=== PATIENT | male | born 2000 | race Caucasian/White ===

== ENCOUNTER 2021-09-13 13:35 | Emergency (ER) | payer BC, SELFPAY ==
[2021-09-13 13:35] VITALS: BP 121/67; PULSE 89; RESP 18; TEMP 36.7; O2SAT 99; BMI 26.5
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
--- NOTE | 2021-09-13 14:10 | RAD_ITS ---
EXAM: XR RIGHT ANKLE, 2 VIEWS CLINICAL INDICATION: pain TECHNIQUE: Frontal and lateral views of the right ankle. This report was created using [employer] report generation technology. COMPARISON: None. FINDINGS: BONES/JOINTS: Partially visualized distal tibial fracture. Preservation of the joint space. No sclerotic or destructive changes observed. SOFT TISSUES: Unremarkable. No soft tissue swelling or gas. No radiopaque foreign body. RAD/Ankle 2 Views IMPRESSION: Partially visualized distal tibial fracture. Electronically Signed: Ralph Mccloud MD at 15:13 EDT ,
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
--- NOTE | 2021-09-13 14:10 | RAD_ITS ---
EXAM: XR RIGHT TIBIA AND FIBULA, 2 VIEWS CLINICAL INDICATION: pain TECHNIQUE: Frontal and lateral views of the right tibia and fibula. This report was created using [employer] report generation technology. COMPARISON: None. FINDINGS: BONES/JOINTS: Mid to distal third of the fracture of the tibia. There is displacement. Preservation of the joint space. No sclerotic or destructive changes observed. SOFT TISSUES: Unremarkable. No soft tissue swelling or gas. No radiopaque foreign body. RAD/Tibia & Fibula 2 Views IMPRESSION: Mid to distal third of the fracture of the tibia. There is displacement. Electronically Signed: Ralph Mccloud MD at 15:13 EDT ,
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
[2021-09-13 14:41] LABS: Absolute Lymphocyte Count 1.28 X10^3/uL (0.83-4.51); Basophil# 0.11 X10^3/uL; Eosinophils% 3.5 % (0-5); Hematocrit 42.7 % (40-54); Hemoglobin 15.4 g/dL (13.0-16.5); Lymphocyte # 1.28 X10^3/ul (0.83-4.51); Lymphocyte % 11.3 % (19-41); Mean Corp Hgb Conc 36.1 g/dL (32-36); Mean Corpuscular Hgb 31.5 pg (27.0-32.0); Mean Corpuscular Volume 87.3 fL (80-94); Mean Platelet Vol. 9.8 fl (6.2-12.0); Monocyte# 0.59 X10^3/uL; Monocyte% 5.2 % (0-10); NRBC Flagged by Analyzer 0 % (0-5); Neutrophil # 8.95 X10^3/uL (2.7-7.7); Neutrophil % 78.6 % (47-70); Platelet Count 276 K/mm3 (150-450); RBC Distribution Width CV 11.9 % (11.6-14.6); RBC Distribution Width SD 38.1 fl (35.1-43.9); Red Blood Count 4.89 M/mm3 (4.6-6.2); White Blood Count 11.4 K/mm3 (4.4-11.0)
[2021-09-13 14:50] LABS: Anion Gap 9 (5-15); BUN 18 mg/dL (7-18); BUN/Creat Ratio 15.4 RATIO (10-20); Calcium,Total 9.6 mg/dL (8.5-10.1); Chloride 107 mmol/L (98-107); Creatinine, Serum 1.17 mg/dL (0.70-1.30); EST Glomerular Filtration Rate 83 mL/min (>60); Est Glom Filt Rate - Afr Amer 100 mL/min (>60); Estimated Creatinine Clearance 121.59 ml/min; Glucose 100 mg/dL (74-106); International Normalized Ratio 1.1; Potassium 3.2 mmol/L (3.5-5.1); Prothrombin Time (Protime)PT. 13.4 SECONDS (11.7-14.9); Sodium Level 141 mmol/L (136-145)
[2021-09-13 15:06] LABS: Alcohol, Blood (Medical)-Serum < 3.0 mg/dL
[2021-09-13] MEDS: Morphine 4 MG/ML Syringe IV (15:08)
[2021-09-13] MEDS: Ondansetron 4 MG/2 ML Vial IV (15:08)
[2021-09-13 15:12] VITALS: BP 127/64; PULSE 89; RESP 18; O2SAT 96
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
[2021-09-13] MEDS: HYDROmorphone 1 MG/ML Syringe IV (17:00)
[2021-09-13 17:10] VITALS: BP 119/72; PULSE 86; RESP 16; O2SAT 98
--- NOTE | 2021-09-13 17:10 | RAD_ITS ---
EXAM: XR RIGHT TIBIA AND FIBULA, 2 VIEWS CLINICAL INDICATION: tib fracture TECHNIQUE: Frontal and lateral views of the right tibia and fibula. This report was created using [employer] report generation technology. COMPARISON: Study done earlier FINDINGS: BONES/JOINTS: Fiberglas cast in place. Alignment is unchanged since the prior study. Mid tibial fracture is again identified. Preservation of the joint space. No sclerotic or destructive changes observed. SOFT TISSUES: Unremarkable. No soft tissue swelling or gas. No radiopaque foreign body. RAD/Tibia & Fibula 2 Views IMPRESSION: 1. Fiberglas cast in place. Alignment is unchanged since the prior study. 2. Mid tibial fracture is again identified. Electronically Signed: Ralph Mccloud MD at 18:01 EDT ,
[2021-09-13] MEDS: oxyCODONE 5 MG Tablet PO (17:41)
== END 2021-09-13 18:03 | disposition home or self-care (01) ==
PROVIDERS: Emergency Provider Student in an Organized Health Care Education/Training Program; PCP Nurse Practitioner Primary Care; Visit Provider Student in an Organized Health Care Education/Training Program
DX: S82.301A Unspecified fracture of lower end of right tibia, initial encounter for closed fracture (principal); S60.211A Contusion of right wrist, initial encounter; S09.90XA Unspecified injury of head, initial encounter; S50.311A Abrasion of right elbow, initial encounter; S50.312A Abrasion of left elbow, initial encounter; V28.0XXA Motorcycle driver injured in noncollision transport accident in nontraffic accident, initial encounter; Y93.39 Activity, other involving climbing, rappelling and jumping off; Y99.8 Other external cause status
CPT/HCPCS: 29126; 29125; 70450; 71260; 72125; 73090; 73110; 73130; 73590; 73600; 73620; 74177; 80048; 82077; 85025; 85610; 93005; 96374; 96375; 99285; Q9967; A4216; J2405